=== PATIENT | male | born 1965 | race African-American/Black ===

== ENCOUNTER 2017-12-24 02:11 | Emergency (ER) | payer MEDICAID ==
[~2017-12-24] VITALS: Ht 175.3 cm; Wt 68.5 kg
[2017-12-24] MEDS ORDERED: HYDROCODONE/ACETAMINOPHEN 5/325MG TABLET PO STA (04:43)
[2017-12-24 09:26] VITALS: BP 120/74
== END 2017-12-24 09:41 | disposition short-term general hospital (02) ==
LOC: ER 02:11
DX: M54.2 Cervicalgia (principal); R51 Headache; M54.5 Low back pain; I10 Essential (primary) hypertension; V49.49XA Driver injured in collision with other motor vehicles in traffic accident, initial encounter; Y93.89 Activity, other specified; Y92.89 Other specified places as the place of occurrence of the external cause; Y99.8 Other external cause status; Z86.73 Personal history of transient ischemic attack (TIA), and cerebral infarction without residual deficits; Z98.890 Other specified postprocedural states; Z88.0 Allergy status to penicillin
CPT/HCPCS: 70450; 72100; 72125; 99284; Z7610

== ENCOUNTER 2023-02-23 11:19 | Emergency (ER) | payer MEDICAID, OTHER ==
[~2023-02-23] VITALS: Ht 185.4 cm; Wt 73.0 kg
[2023-02-23 11:24] VITALS: O2SAT 99
[2023-02-23] MEDS ORDERED: KETOROLAC 30MG/ML VIAL IM ONE (11:45)
[2023-02-23] MEDS ORDERED: ACETAMINOPHEN 325MG TABLET PO ONE (11:45)
[2023-02-23] MEDS ORDERED: MORPHINE SULFATE 4 MG/ML CPJ (NOT FOR IM USE) IV NR (15:15)
[2023-02-23 15:39] LABS: BASOPHILS % 0.3 % (0.0-2.0); EOSINOPHILS % 0.4 % (0.0-5.0); HEMATOCRIT. 41.5 % (42.0-52.0); HEMOGLOBIN. 13.4 g/dL (14.0-18.0); LYMPHOCYTES % 14.3 % (20.0-50.0); MEAN CORPUSCULAR HEMOGLOBIN 30.3 pg (28.0-32.0); MEAN CORPUSCULAR HGB CONC 32.2 g/dL (31.0-37.0); MEAN CORPUSCULAR VOLUME 94.1 fL (80.0-94.0); MEAN PLATELET VOLUME 7.9 fl (7.4-10.4); MONOCYTES % 8.1 % (2.0-8.0); NEUTROPHILS % 76.9 % (40.0-76.0); PLATELET 245 x1000/uL (130-400); RED BLOOD CELL COUNT 4.41 mill/uL (4.7-6.1); RED CELL DISTRIBUTION WIDTH 14.3 % (11.6-14.6); WHITE BLOOD COUNT 9.4 x1000/uL (4.5-11.0)
[2023-02-23 15:49] LABS: PROTHROMBIN TIME 10.6 sec (9.6-11.0)
[2023-02-23 15:58] LABS: ALANINE AMINOTRANSFERASE 12 IU/L (10-49); ALBUMIN 3.9 g/dL (3.2-4.8); ASPARTATE AMINOTRANSFERASE 16 IU/L (<34); BILIRUBIN TOTAL 0.8 mg/dL (0.1-1.0); CALCIUM 9.1 mg/dL (8.7-10.4); CARBON DIOXIDE 30 mEq/L (21-32); CHLORIDE 108 mEq/L (98-107); CREATININE 0.7 mg/dL (0.6-1.3); GLUCOSE 97 mg/dL (70-105); PROTEIN TOTAL 6.2 g/dL (6.0-8.3); SODIUM 143 mEq/L (136-145); UREA NITROGEN BLOOD 7 mg/dL (9-23)
[2023-02-24 02:19] VITALS: BP 136/83; PULSE 83; RESP 12; TEMP 98.2
== END 2023-02-24 02:39 | disposition short-term general hospital (02) ==
LOC: ER 12:28 → CANBEDREQ 16:11 → ER 02-24 02:39
DX: S72.142A Displaced intertrochanteric fracture of left femur, initial encounter for closed fracture (principal); I25.2 Old myocardial infarction; R51.9 Headache, unspecified; Z98.890 Other specified postprocedural states; Z88.0 Allergy status to penicillin; W07.XXXA Fall from chair, initial encounter; Y93.89 Activity, other specified; Y92.89 Other specified places as the place of occurrence of the external cause; Y99.8 Other external cause status
CPT/HCPCS: 80053; 82962; 85025; 85610; 86850; 86900; 86901; 36415; 70450; 72192; 73700; 96372; 99285; J1885; Z7610 ×3